=== PATIENT | female | born 1970 | race Native Hawaiian/Other Pacific Islander ===

== ENCOUNTER 2017-11-22 02:35 | Inpatient (IN) | payer OTHER ==
[2017-11-22] MEDS ORDERED: SUBLIMAZE IV ONE ×2 (03:14→04:00)
[2017-11-22] MEDS ORDERED: APRESOLINE IV ONE (03:15)
[2017-11-22 03:44] LABS: Basophils # (Auto) 0.1 K/mm3 (0.0-0.1); Basophils % (Auto) 0.7 % (0.0-1.8); Eosinophils # (Auto) 0.1 K/mm3 (0.0-0.4); Eosinophils % (Auto) 0.7 % (0.0-4.3); Hematocrit 37.6 % (30.3-42.9); Hemoglobin 12.5 gm/dl (10.1-14.3); Lymphocytes # (Auto) 1.6 K/mm3 (1.2-5.4); Lymphocytes % (Auto) 20.1 % (13.4-35.0); Mean Corpuscular HGB Conc 33 % (30-34); Mean Corpuscular Hemoglobin 30 pg (28-32); Mean Corpuscular Volume 89 fl (79-97); Monocytes # (Auto) 0.6 K/mm3 (0.0-0.8); Platelet Count 248 K/mm3 (140-440); Red Blood Count 4.22 M/mm3 (3.65-5.03); Red Cell Distribution Width 14.7 % (13.2-15.2)
[2017-11-22] MEDS ORDERED: ZOFRAN ONE (03:44)
[2017-11-22] MEDS ORDERED: ZOFRAN IV ONE (03:48)
--- NOTE | 2017-11-22 04:00 | XRay Report ---
FINAL REPORT PROCEDURE: XR CHEST 1V AP TECHNIQUE: Chest radiograph anteroposterior view. CPT 10421 HISTORY: chest pain COMPARISON: No prior studies are available for comparison. FINDINGS: Heart: Normal. Mediastinum/Vessels: Normal. Lungs/Pleural space: Normal. Bony thorax: No acute osseous abnormality. Life support devices: None. IMPRESSION: No acute cardiopulmonary abnormality.
[2017-11-22 04:09] LABS: BUN/Creatinine Ratio 23; Blood Urea Nitrogen 9 mg/dL (7-17); Calcium 8.6 mg/dL (8.4-10.2); Hemolysis Index 15
[2017-11-22] MEDS ORDERED: NACL ONE (04:23)
--- NOTE | 2017-11-22 04:44 | Emergency Department Report ---
HPI - General Chief Complaint: Chest Pain Time Seen by Provider: 11/22/17 03:13 - HPI HPI: The patient's is qa 47 yo female with a history of CAD and multivessel stent placement, and whom presents for evaluation of chest pain. The patient reports 2 days of constant left-sided pressure-like chest pain, moderate to severe, radiating to the left arm, and associated with episodic numbness in the left arm. The patient denies fever, trauma to the chest, cough, syncope, hemoptysis , unilateral leg swelling, oral contraceptive use, recent immobilization, history of DVT or PE, recent cancer. ED Past Medical Hx - Past Medical History Previous Medical History?: Yes Hx Heart Attack/AMI: Yes Additional medical history: 2 stents in January 2010. 2 stents in 2013 - Social History Smoking Status: Current Every Day Smoker Substance Use Type: None ED Review of Systems ROS: Stated complaint: CHEST PAIN Other details as noted in HPI Constitutional: denies: fever ENT: denies: throat or neck pain Respiratory: denies: cough, shortness of breath Cardiovascular: reports chest pain Endocrine: denies unexplained weight loss or gain Gastrointestinal: denies: abdominal pain, nausea Genitourinary: denies: dysuria Musculoskeletal: denies: leg swelling Skin: denies: rash Neurological: denies: headache Hematological/Lymphatic: denies: easy bleeding or easy bruising Psych: denies sadness or hopelessness Physical Exam - Physical Exam Vital Signs: Vital Signs 11/22/17 11/22/17 11/22/17 02:38 02:54 03:00 Temperature 98.3 F Pulse Rate 88 90 81 Respiratory 15 16 13 Rate Blood Pressure Blood Pressure 147/88 [Left] O2 Sat by Pulse 98 97 Oximetry 11/22/17 11/22/17 03:50 04:00 Temperature Pulse Rate 90 74 Respiratory 11 L Rate Blood Pressure 157/89 142/83 Blood Pressure [Left] O2 Sat by Pulse 99 Oximetry Physical Exam: General: well-nourished, well-developed, no acute distress Head: Normocephalic, atraumatic Eyes: normal sclera ENT: Mucous membranes are pink and moist Neck: trachea midline, neck supple, No neck stiffness, no cervical adenopathy Respiratory: Breath sounds equal bilaterally, no wheezing, rales, or rhonchi Cardio: S1 and S2 present, no murmurs, rubs, gallops, capillary refill is brisk Abdomen: Normoactive bowel sounds, soft abdomen, no rigidity, no guarding or rebound tenderness Musc: No pitting edema Skin: No rash Neuro: no facial drooping, normal speech Psych: Normal affect ED Course Vital Signs 11/22/17 11/22/17 11/22/17 02:38 02:54 03:00 Temperature 98.3 F Pulse Rate 88 90 81 Respiratory 15 16 13 Rate Blood Pressure Blood Pressure 147/88 [Left] O2 Sat by Pulse 98 97 Oximetry 11/22/17 11/22/17 03:50 04:00 Temperature Pulse Rate 90 74 Respiratory 11 L Rate Blood Pressure 157/89 142/83 Blood Pressure [Left] O2 Sat by Pulse 99 Oximetry ED Medical Decision Making - Lab Data Result diagrams: 11/22/17 03:20 11/22/17 03:20 - Medical Decision Making The patient was seen and examined by myself. The patient is placed on a personnel monitor and continuous pulse ox. On initial evaluation, the patient was found to be in no distress. EKG was negative for findings suggestive of acute cardiac infarct. The patient is given pain medicine. Labs and imaging are obtained. Chest x-ray is negative for pneumothorax, focal consolidation, pulmonary vascular congestion, pleural effusion, or other obvious acute cardiopulmonary disease process. Lab results were non-revealing including negative troponin, WBC, hemoglobin, hematocrit, electrolytes, renal function. The patient was reevaluated and reported that their symptoms were improved. CTA of the chest is negative for aortic dissection, pulmonary medicine, or other emergent disease process. As the patient has chest pain and history of coronary stent placement , the patient will be admitted for close cardiopulmonary monitoring, serial troponins, and evaluation by cardiology. The on-call hospitalist service was contacted. They agreed to admit the patient for further treatment and close monitoring. The ED admit order was placed. The patient was admitted in guarded condition. Critical care attestation.: If time is entered above; I have spent that time in minutes in the direct care of this critically ill patient, excluding procedure time. ED Disposition Clinical Impression: Acute chest pain, Hypertensive urgency Disposition: OP ADMIT IP TO THIS HOSP Is pt being admited?: Yes Does the pt Need Aspirin: Yes Condition: Stable Referrals: HERB ORNELAS MD [Primary Care Provider] - 3-5 Days Time of Disposition: 04:45
[2017-11-22] MEDS ORDERED: BABY ASPIRIN PO ONE (04:46)
[2017-11-22] MEDS ORDERED: ATIVAN IV ONE (05:05)
--- NOTE | 2017-11-22 05:22 | Cat Scan Report ---
FINAL REPORT PROCEDURE: CT ANGIO CHEST TECHNIQUE: Computerized tomographic angiography of the chest was performed after the IV injection of iodinated nonionic contrast including image processing. The image data was postprocessed using 2-dimensional multiplanar reformatted (MPR) and 3-dimensional (MIP and/or volume rendered) techniques. HISTORY: chest pain COMPARISON: No prior studies are available for comparison. FINDINGS: Heart and pericardium: Normal. Thoracic aorta: Normal. Pulmonary vasculature: Normal. Lymph nodes: No enlarged thoracic lymph nodes. Lungs: Normal. Pleural space: No effusion, thickening, or pneumothorax. Musculoskeletal structures: No significant abnormality. Upper abdominal structures: No significant abnormality. IMPRESSION: There is no evidence of pulmonary arterial emboli. The lungs are clear. No infiltrate, effusion or pneumothorax.
[2017-11-22] MEDS ORDERED: SODIUM CHLORIDE FLUSH SYRINGE 10 ML IV PRN (06:01)
--- NOTE | 2017-11-22 06:01 | History and Physical Report ---
History of Present Illness Date of examination: 11/22/17 History of present illness: 56 year old woman with a history of hypertension, coronary artery disease to the emergency room with complaints of chest pain. Pain is in the left chest which he describes as a pressure, radiating to the left arm, constant, intensity 7/10, no radiation, some relief with nitroglycerin, she cannot identify exacerbating or exacerbating factors. She denies nausea, vomiting, palpitations, diaphoresis, shortness of breath Review of systems Constitutional: no weight loss, chills Ears, eyes, nose, mouth and throat: no nasal congestion, no nasal discharge, no sinus pressure, no vision change, no red eye. Neck: No neck pain or rigidity. Cardiovascular: + chest pain,no palpitations Respiratory: No cough, shortness of breath Gastrointestinal: no abdominal pain, hematochezia Genitourinary : no dysuria, frequency , no hematuria Musculoskeletal: no joint swelling or muscle ache Integumentary: no rash, no pruritis Neurological: no parathesias, no numbness, no focal weakness Endocrine: no cold or heat intolerance, no polyuria or polydipsia Hematologic/Lymphatic: no easy bruising, no easy bleeding, no gland swelling Allergic/Immunologic: no urticaria, no angioedema. PAST MEDICAL HISTORY: hypertension, coronary artery disease PAST SURGICAL HISTORY: None SOCIAL HISTORY: Denies alcohol, tobacco, drugs FAMILY HISTORY: hypertension Medications and Allergies Allergies Allergy/AdvReac Type Severity Reaction Status Date / Time No Known Allergies Allergy Unverified 11/22/17 03:19 Exam - Physical Exam Narrative exam: Gen. appearance: Patient lying in bed, no apparent distress HEENT: Normocephalic, atraumatic, pupils equally round and reactive to light, extraocular movement intact, and no sclericterus,. No JVD or thyromegaly or nodule,neck supple, no carotid bruit ,mucous membranes moist, no exudate or erythema Heart: S1, S2, regular rate and rhythm Lungs: Clear to auscultation bilaterally, breathing comfortable Abdomen: Positive bowel sounds, nontender, nondistended, no organomegaly Extremity: No edema, cyanosis, clubbing Skin: No rash, nodules, warm, dry Neuro: Oriented 3, cranial nerves II-12 intact, speech is fluent, motor and sensory intact - Constitutional Vitals: Temp Pulse Resp BP Pulse Ox 98.3 F 67 11 L 114/67 100 11/22/17 02:54 11/22/17 04:30 11/22/17 04:30 11/22/17 05:10 11/22/17 05:10 Results - Labs CBC & Chem 7: 11/22/17 03:20 11/22/17 03:20 Labs: Abnormal lab results 11/22/17 11/22/17 Range/Units 03:20 03:20 Seg Neutrophils % 71.5 H (40.0-70.0) % Sodium 135 L (137-145) mmol/L Carbon Dioxide 20 L (22-30) mmol/L Creatinine 0.4 L (0.7-1.2) mg/dL Glucose 132 H (65-100) mg/dL Assessment and Plan Assessment Unstable angina CAD Hypertension Plan Admit to medicine Check cardiac enzymes, consult cardiology Iv morphine, dvt prophalaxis
[2017-11-22 07:14] LABS: Creatine Kinase MB 1.8 ng/mL (0.0-4.0)
[2017-11-22] MEDS: LOVENOX SUB-Q SCH (09:18)
[2017-11-22] MEDS: SODIUM CHLORIDE FLUSH SYRINGE 10 ML IV SCH ×2 (09:18→21:27)
--- NOTE | 2017-11-22 10:40 | Consultation ---
History of Present Illness Consult date: 11/22/17 Consult reason: chest pain History of present illness: Patient is a 47yr old woman who gives a history of hypertension, coronary artery disease who was brought to this hospital with complaints of uncontrolled hypertension and chest pain. Patient reports her systolic blood pressure has been ranging from 170-180s over the last few weeks, now associated with chest pain, headaches, nausea, weakness and diaphoresis. 12 lead ECG is a normal sinus rhythm. No acute ischemic changes. No evidence of pulmonary embolus on chest CTA. Medications and Allergies Allergies Allergy/AdvReac Type Severity Reaction Status Date / Time No Known Allergies Allergy Unverified 11/22/17 03:19 Home Medications Medication Instructions Recorded Confirmed Last Taken Type Metoprolol [Lopressor] 25 mg PO QDAY 11/22/17 11/22/17 Unknown History Active Meds: Active Medications Acetaminophen (Tylenol) 650 mg PO Q4H PRN PRN Reason: Pain MILD(1-3)/Fever >100.5/CHAND Enoxaparin Sodium (Lovenox) 40 mg SUB-Q QDAY [facility] Last Admin: 11/22/17 09:18 Dose: 40 mg Morphine Sulfate (Morphine) 2 mg IV Q4H PRN PRN Reason: Pain, Moderate (4-6) Ondansetron HCl (Zofran) 4 mg IV Q8H PRN PRN Reason: Nausea And Vomiting Sodium Chloride (Sodium Chloride Flush Syringe 10 Ml) 10 ml IV BID [facility] Last Admin: 11/22/17 09:18 Dose: 10 ml Sodium Chloride (Sodium Chloride Flush Syringe 10 Ml) 10 ml IV PRN PRN PRN Reason: LINE FLUSH Physical Examination Vital Signs Pulse Resp 88 15 11/22/17 02:38 11/22/17 02:38 General appearance: no acute distress HEENT: Positive: PERRL Neck: Positive: trachea midline Cardiac: Positive: Reg Rate and Rhythm Lungs: Positive: Decreased Breath Sounds Neuro: Positive: Grossly Intact Extremities: Absent: edema Results 11/22/17 03:20 11/22/17 03:20 Cardiac Enzymes 11/22/17 Range/Units 06:18 CK-MB (CK-2) 1.8 (0.0-4.0) ng/mL CBC 11/22/17 Range/Units 03:20 WBC 7.9 (4.5-11.0) K/mm3 RBC 4.22 (3.65-5.03) M/mm3 Hgb 12.5 (10.1-14.3) gm/dl Hct 37.6 (30.3-42.9) % Plt Count 248 (140-440) K/mm3 Lymph # 1.6 (1.2-5.4) K/mm3 [place] # 0.6 (0.0-0.8) K/mm3 Eos # 0.1 (0.0-0.4) K/mm3 Baso # 0.1 (0.0-0.1) K/mm3 Comprehensive Metabolic Panel 11/22/17 Range/Units 03:20 Sodium 135 L (137-145) mmol/L Potassium 3.7 (3.6-5.0) mmol/L Chloride 98.7 (98-107) mmol/L Carbon Dioxide 20 L (22-30) mmol/L BUN 9 (7-17) mg/dL Creatinine 0.4 L (0.7-1.2) mg/dL Glucose 132 H (65-100) mg/dL Calcium 8.6 (8.4-10.2) mg/dL Assessment and Plan Chest pain chest CTA negative for PE normal ECG negative cardiac markers Hypertension Hx of CAD
[2017-11-22] MEDS: TYLENOL PO PRN ×2 (11:50→21:19)
[2017-11-22] MEDS: NORVASC PO SCH (12:41)
[2017-11-22] MEDS: MORPHINE IV PRN ×2 (12:47→21:16)
--- NOTE | 2017-11-22 14:48 | Event Note ---
Date: 11/22/17 Pt seen and examined today. She is concerned about the anti-depressant to be started by the signal timer. Plan: cont mgx per cardiology
[2017-11-22 17:08] LABS: Creatine Kinase MB 1.5 ng/mL (0.0-4.0)
[2017-11-22] MEDS: ZOFRAN IV PRN (18:33)
[2017-11-22] MEDS: LOPID PO SCH (21:19)
[2017-11-22] MEDS: PRAVACHOL PO SCH (21:20)
[2017-11-22] MEDS: COREG PO SCH (21:20)
[2017-11-22] MEDS ORDERED: XANAX PO ONE (21:38)
[2017-11-23] MEDS: MORPHINE IV PRN ×2 (06:00→12:39)
[2017-11-23] MEDS: TYLENOL PO PRN ×2 (06:00→12:37)
[2017-11-23] MEDS: ZOFRAN IV PRN ×2 (06:00→20:55)
[2017-11-23 06:59] LABS: Basophils # (Auto) 0.1 K/mm3 (0.0-0.1); Basophils % (Auto) 1.2 % (0.0-1.8); Eosinophils # (Auto) 0.2 K/mm3 (0.0-0.4); Eosinophils % (Auto) 3.5 % (0.0-4.3); Hematocrit 38.7 % (30.3-42.9); Lymphocytes # (Auto) 2.4 K/mm3 (1.2-5.4); Lymphocytes % (Auto) 43.8 % (13.4-35.0); Mean Corpuscular HGB Conc 34 % (30-34); Mean Corpuscular Hemoglobin 30 pg (28-32); Mean Corpuscular Volume 90 fl (79-97); Monocytes # (Auto) 0.6 K/mm3 (0.0-0.8); Monocytes % (Auto) 10.9 % (0.0-7.3); Platelet Count 251 K/mm3 (140-440); Red Blood Count 4.29 M/mm3 (3.65-5.03); Red Cell Distribution Width 14.3 % (13.2-15.2)
[2017-11-23 07:49] LABS: BUN/Creatinine Ratio 28; Blood Urea Nitrogen 17 mg/dL (7-17); Calcium 8.9 mg/dL (8.4-10.2); Hemolysis Index 26
[2017-11-23] MEDS: NORVASC PO SCH (12:37)
[2017-11-23] MEDS: LOVENOX SUB-Q SCH (12:37)
[2017-11-23] MEDS: HALFPRIN EC PO SCH (12:38)
[2017-11-23] MEDS: LOPID PO SCH ×2 (12:38→22:42)
[2017-11-23] MEDS: COREG PO SCH ×2 (12:38→22:42)
[2017-11-23] MEDS: SODIUM CHLORIDE FLUSH SYRINGE 10 ML IV SCH ×2 (12:41→22:53)
[2017-11-23] MEDS ORDERED: IMITREX PO PRN (14:28)
--- NOTE | 2017-11-23 14:30 | Progress Note ---
Assessment and Plan Assessment and plan: Unstable angina, rule out ACS -NST done, report pending -Cardiology following Hypertension, stable Migraines -PRN sumatriptan Disp: d/c pt when cleared by cardiology History Interval history: Patient complained of migraine. She denies chest pain or shortness of breath Hospitalist Physical - Constitutional Vitals: Temp Pulse Resp BP Pulse Ox 98.8 F 65 18 144/99 96 11/23/17 07:56 11/23/17 12:38 11/23/17 07:56 11/23/17 12:38 11/23/17 07:56 General appearance: Present: no acute distress - EENT Eyes: Present: PERRL, EOM intact ENT: clear oral mucosa - Neck Neck: Present: supple - Respiratory Respiratory effort: normal Respiratory: bilateral: CTA - Cardiovascular Rhythm: regular Heart Sounds: Present: S1 & S2 - Extremities Extremities: No edema - Abdominal General gastrointestinal: soft, non-tender, normal bowel sounds - Neurologic Neurologic: CNII-XII intact Results - Labs CBC & Chem 7: 11/23/17 05:40 11/23/17 05:40 Labs: Laboratory Last Values WBC 5.4 K/mm3 (4.5-11.0) 11/23/17 05:40 RBC 4.29 M/mm3 (3.65-5.03) 11/23/17 05:40 Hgb 13.0 gm/dl (10.1-14.3) 11/23/17 05:40 Hct 38.7 % (30.3-42.9) 11/23/17 05:40 MCV 90 fl (79-97) 11/23/17 05:40 MCH 30 pg (28-32) 11/23/17 05:40 MCHC 34 % (30-34) 11/23/17 05:40 RDW 14.3 % (13.2-15.2) 11/23/17 05:40 Plt Count 251 K/mm3 (140-440) 11/23/17 05:40 Lymph % (Auto) 43.8 % (13.4-35.0) H 11/23/17 05:40 [place] % (Auto) 10.9 % (0.0-7.3) H 11/23/17 05:40 Eos % (Auto) 3.5 % (0.0-4.3) 11/23/17 05:40 Baso % (Auto) 1.2 % (0.0-1.8) 11/23/17 05:40 Lymph # 2.4 K/mm3 (1.2-5.4) 11/23/17 05:40 [place] # 0.6 K/mm3 (0.0-0.8) 11/23/17 05:40 Eos # 0.2 K/mm3 (0.0-0.4) 11/23/17 05:40 Baso # 0.1 K/mm3 (0.0-0.1) 11/23/17 05:40 Seg Neutrophils % 40.6 % (40.0-70.0) 11/23/17 05:40 Seg Neutrophils # 2.2 K/mm3 (1.8-7.7) 11/23/17 05:40 Sodium 135 mmol/L (137-145) L 11/23/17 05:40 Potassium 3.8 mmol/L (3.6-5.0) 11/23/17 05:40 Chloride 98.4 mmol/L (98-107) 11/23/17 05:40 Carbon Dioxide 23 mmol/L (22-30) 11/23/17 05:40 Anion Gap 17 mmol/L 11/23/17 05:40 BUN 17 mg/dL (7-17) 11/23/17 05:40 Creatinine 0.6 mg/dL (0.7-1.2) L 11/23/17 05:40 Estimated GFR > 60 ml/min 11/23/17 05:40 BUN/Creatinine Ratio 28 % 11/23/17 05:40 Glucose 105 mg/dL (65-100) H 11/23/17 05:40 Calcium 8.9 mg/dL (8.4-10.2) 11/23/17 05:40 Total Creatine Kinase 120 units/L (30-135) 11/22/17 15:56 CK-MB (CK-2) 1.5 ng/mL (0.0-4.0) 11/22/17 15:56 CK-MB (CK-2) Rel Index 1.2 (0-4) 11/22/17 15:56 Troponin T < 0.010 ng/mL (0.00-0.029) 11/22/17 15:56 NT-Pro-B Natriuret Pep 18.04 pg/mL (0-450) 11/22/17 03:20 HCG, Qual Negative (Negative) 11/22/17 03:55
[2017-11-23] MEDS ORDERED: XANAX PO PRN (14:31)
--- NOTE | 2017-11-23 14:59 | Event Note ---
Date: 11/23/17 Stress thallium test performed today, the patient exercised for 8 minutes of a David protocol, reaching stage III and achieving 9 METS. There was no chest pain, no ST changes and no dysrhythmias. Thallium images revealed normal myocardial perfusion study. Thallium stress test is normal, no further cardiac workup is indicated. Continue medical therapy and risk factor modification for underlying coronary disease.
[2017-11-23] MEDS ORDERED: MORPHINE IV PRN (21:24)
[2017-11-23] MEDS: PRAVACHOL PO SCH (22:42)
--- NOTE | 2017-11-24 00:02 | Treadmill Report ---
THALLIUM STRESS TEST REPORT LEFT VENTRICLE: Left ventricular chamber size is within normal spread. Perfusion study demonstrates homogeneous uptake of the tracer in all segments, no significant perfusion defects identified. Gated analysis demonstrates normal left ventricular systolic function, ejection fraction of 53%. CONCLUSION: Normal myocardial perfusion study. JOB# [id number] CA/NTS
[2017-11-24] MEDS: NORVASC PO SCH (09:15)
[2017-11-24] MEDS: HALFPRIN EC PO SCH (09:15)
[2017-11-24] MEDS: COREG PO SCH (09:15)
[2017-11-24] MEDS: LOVENOX SUB-Q SCH (09:17)
[2017-11-24] MEDS: LOPID PO SCH (09:19)
--- NOTE | 2017-11-24 11:14 | Progress Note ---
Assessment and Plan Chest pain chest CTA negative for PE normal ECG negative cardiac markers normal MPI Hypertension -controlled Hx of CAD Recommendations: Continue medical therapy and risk factor modification for underlying coronary disease. Otherwise, stable for discharge home, cardiac storey. Subjective Date of service: 11/24/17 Interval history: Patient denies chest pain. BP is better, currently 110/80. Objective Vital Signs Temp Pulse Resp BP Pulse Ox 11/24/17 10:00 20 11/24/17 09:15 68 110/80 11/24/17 09:00 64 11/24/17 07:48 98.1 F 66 18 108/78 98 11/24/17 05:07 98.1 F 62 20 124/89 97 11/23/17 23:35 97.7 F 59 L 20 116/74 97 11/23/17 22:42 66 125/82 11/23/17 19:48 97.6 F 66 20 125/82 99 11/23/17 16:07 97.8 F 60 18 114/73 96 11/23/17 12:38 65 144/99 11/23/17 12:37 65 144/99 11/23/17 12:26 98.3 F 67 16 144/99 98 - Physical Examination General: No Apparent Distress HEENT: Positive: PERRL Cardiac: Positive: Reg Rate and Rhythm Neuro: Positive: Grossly Intact Extremities: Absent: edema
[2017-11-24 12:10] VITALS: BP 115/85
--- NOTE | 2017-11-24 12:36 | Discharge Summary ---
Providers - Providers Date of Admission: 11/22/17 06:01 Attending physician: KIMBER RODRIGUEZ MD 11/22/17 06:01 Consult to Physician [CONS] Routine Comment: Consulting Provider: KERVIN COX Physician Instructions: Reason For Exam: ua Primary care physician: HERB ORNELAS Hospitalization Condition: Stable Hospital course: Unstable angina, rule out ACS -NST done, report pending -Cardiology following Hypertension, stable Migraines -PRN sumatriptan Disp: d/c pt when cleared by cardiology Disposition: DC-01 TO HOME OR SELFCARE Time spent for discharge: 35 mins Core Measure Documentation - Palliative Care Palliative Care/ Comfort Measures: Not Applicable - Core Measures Any of the following diagnoses?: none - VTE Discharge Requirements Deep Vein Thrombosis/Pulmonary Embolism Present on Admission: No Exam - Constitutional Vitals: Temp Pulse Resp BP Pulse Ox 98.0 F 84 20 115/85 97 11/24/17 11:35 11/24/17 11:35 11/24/17 11:35 11/24/17 11:35 11/24/17 11:35 Plan Activity: advance as tolerated, fall precautions Diet: low fat Special Instructions: record daily BP diary Follow up with: HERB ORNELAS MD [Primary Care Provider] - 3-5 Days MATEUS LUNA MD [Staff Physician] - 7 Days Prescriptions: Pravastatin [Pravachol] 20 mg PO QHS #30 tablet ALPRAZolam [Xanax TAB] 0.25 mg PO Q8H PRN #14 tablet PRN Reason: Anxiety amLODIPine [Norvasc] 10 mg PO QDAY #30 tablet Aspirin EC [Aspirin Enteric Coated TAB] 81 mg PO QDAY #30 tablet Carvedilol [Coreg] 3.125 mg PO BID #60 tablet Gemfibrozil [Lopid] 600 mg PO BID #60 tablet Pantoprazole [Protonix TAB] 40 mg PO QDAY #30 tablet
[2017-11-24] MEDS: TYLENOL PO PRN (14:24)
[2017-11-24] MEDS: SODIUM CHLORIDE FLUSH SYRINGE 10 ML IV SCH (14:25)
== END 2017-11-24 13:35 | disposition home or self-care (01) | DRG 311 ==
LOC: ED 02:35 → 4A 06:01
PROVIDERS: ADMIT Internal Medicine; ATTEND Internal Medicine
DX: I24.9 Acute ischemic heart disease, unspecified (principal); I25.110 Atherosclerotic heart disease of native coronary artery with unstable angina pectoris; I10 Essential (primary) hypertension; F17.200 Nicotine dependence, unspecified, uncomplicated; G43.909 Migraine, unspecified, not intractable, without status migrainosus; I16.0 Hypertensive urgency; Z95.5 Presence of coronary angioplasty implant and graft; Z82.49 Family history of ischemic heart disease and other diseases of the circulatory system; I25.2 Old myocardial infarction
CPT/HCPCS: 36415; 71045; 71275; 78452; 80048; 82550; 82553; 83880; 84484; 84703; 85025; 93005; 93010; 93017; 93306; 96374; 96375; A9270-GY; A9502; J0360; J1650; J2060; J2270; J2405; J3010; Q9967